=== PATIENT | female | born 1985 | race Two or more races ===

== ENCOUNTER 2020-08-21 11:35 | Emergency (ER) | payer SELFPAY ==
[~2020-08-21] VITALS: Ht 149.9 cm; Wt 50.0 kg
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
[2020-08-21] MEDS ORDERED: KETOROLAC 15 MG/ML VIAL. IVP ONE (12:00)
--- NOTE | 2020-08-21 12:02 | EKG ---
[address] [address] Test Date: 2020-08-21 Test Time: 11:42:03 Pat Name: LÓPEZ SMITH Department: Room: Gender: F Riffler Tender: ANTOINETTE : 1985 Requested By: HUANG MITCHELL Order Number: [id number] Reading MD: Sd Rea MD Measurements Intervals [place] Rate: 100 P: 38 VT: 152 QRS: 61 QRSD: 72 T: 42 QT: 318 QTc: 413 Interpretive Statements SINUS RHYTHM Electronically Signed On 08-22-2020 10:59:45 [employer]IST by Sd Rea MD
--- NOTE | 2020-08-21 12:07 | RAD ---
AP chest. HISTORY: Right-sided chest pain AP view was taken of the chest. Lungs are clear. Heart is normal in size without heart failure. There is no effusion. IMPRESSION: 1. No acute chest disease. Electronically signed by: Kashmir Ornelas MD (08/21/2020 12:04 PM) [id number]
[2020-08-21 12:27] LABS: BASO % 1 % (0-3); EOS % 1 % (0-3); HEMOGLOBIN 13.9 g/dL (12.0-15.5); LYMPH # 1.3 x10^3/uL (1.0-4.8); LYMPH % 32 % (24-48); MEAN CORPUSCULAR HEMOGLOBIN 31 pg (25-35); MEAN CORPUSCULAR HGB CONC 33 g/dL (31-37); MEAN CORPUSCULAR VOLUME 95 fL (79-100); MONO # 0.3 x10^3/uL (0.0-1.1); MONO % 8 % (0-9); NEUT # 2.4 x10^3uL (1.8-7.7); NEUT % 58 % (31-73); PLATELET COUNT 297 x10^3/uL (140-400); RED BLOOD COUNT 4.44 x10^6/uL (3.50-5.40); RED CELL DISTRIBUTION WIDTH 14.5 % (11.5-14.5)
[2020-08-21 12:28] LABS: CALCIUM 9.6 mg/dL (8.5-10.1); CREATININE 0.8 mg/dL (0.6-1.0); GFR 82.1; POTASSIUM 4.2 mmol/L (3.5-5.1)
[2020-08-21 12:34] LABS: ALBUMIN 4.2 g/dL (3.4-5.0); ALBUMIN/GLOBULIN RATIO 1.1 (1.0-1.7); TOTAL BILIRUBIN 0.3 mg/dL (0.2-1.0); TOTAL PROTEIN 7.9 g/dL (6.4-8.2)
[2020-08-21 12:43] LABS: PREG TEST PT QUAL NEGATIVE (NEG)
[2020-08-21] MEDS ORDERED: HYDR-3165 PO (12:56)
[2020-08-21 12:59] VITALS: BP 107/85
[2020-08-21] MEDS ORDERED: HYDROcodone/APAP 5/325MG 1 TAB TABLET PO ONE (13:00)
== END 2020-08-21 13:07 | disposition home or self-care (01) ==
LOC: ER 11:35
DX: R07.81 Pleurodynia (principal); F41.9 Anxiety disorder, unspecified; F17.210 Nicotine dependence, cigarettes, uncomplicated
CPT/HCPCS: 36415; 71045; 80053; 83690; 84484; 84703; 85025; 85379; 93005; 99285-25